=== PATIENT | female | born 1965 | race Caucasian/White ===

== ENCOUNTER 2017-12-27 10:53 | Emergency (ER) | payer OTHER ==
[2017-12-27 11:00] VITALS: BMI 28.3
--- NOTE | 2017-12-27 11:30 | PDOC ---
History of Present Illness - General Chief Complaint: Lightheaded Stated Complaint: LEG PAIN/dizziness Time Seen by Provider: 12/27/17 11:30 History Source: Patient, Spouse - History of Present Illness Initial Comments: 12/27/17 11:44 52 year old female with PMHmigraines, GERD c/o right inguinal pain since yesterday. She denies abdominal pain, nausea, vomiting, diarrhea, blood in stool , dysuria, vaginal bleeding, vaginal discharge, fever, chest pain, shortness of breath, headache. She also complains of dizziness since this morning. Pt states her pain began while she was lying in bed, doing no activity. PCP - Dr. Nay Reynoso Allergies - NKDA Denies etoh use, nicotine use and illicit drug use. LMP - 2 years ago. Past History - Past Medical History Allergies/Adverse Reactions: Allergies Allergy/AdvReac Type Severity Reaction Status Date / Time No Known Allergies Allergy Verified 12/27/17 10:56 Home Medications: Ambulatory Orders Esomeprazole Magnesium [Nexium 24Hr] 20 mg PO DAILY 12/27/17 COPD: No GI Disorders: Yes (gastritis) Other medical history: migraines,vertigo - Suicide/Smoking/Psychosocial Hx Smoking History: Never smoked Have you smoked in the past 12 months: No Information on smoking cessation initiated: No Hx Alcohol Use: No Drug/Substance Use Hx: No Substance Use Type: None Review of Systems - Review of Systems Able to Perform ROS?: Yes Comments:: 12/27/17 11:46 General: denies fever, chills, night sweats, generalized weakness. HEENT: denies sore throat, rhinorrhea, ear pain. Heart: denies chest pain, palpitations, syncope, lower extremity swelling, diaphoresis. Respiratory: denies shortness of breath, cough, sputum production, hematemesis. Abdomen: admits to right inguinal pain. denies abdominal pain, nausea, vomiting , diarrhea, constipation, blood in stool. : denies dysuria, increased urinary frequency, hematuria, urinary incontinence , flank pain. Back: denies back pain, flank pain. Musculoskeletal: denies joint pain, muscle pain, joint swelling. Neurological: admits to dizziness. denies headache, numbness, tingling, weakness. Skin: denies rash, laceration, abrasion. *Physical Exam - Vital Signs Last Vital Signs Temp Pulse Resp BP Pulse Ox 99.4 F 95 H 18 150/95 100 12/27/17 10:58 12/27/17 10:58 12/27/17 10:58 12/27/17 10:58 12/27/17 10:58 - Physical Exam Comments: 12/27/17 11:47 Appearance: comfortable. HEENT: head is normocephalic, atraumatic. EOMI. PERRLA. Neck: supple. Full ROM. Heart: regular rhythm. no murmurs, rubs or gallops. No pericardial friction rub. Lungs: clear to auscultation bilaterally. no crackles, rhonchi or wheezing. no stridor. Abdomen: soft, nontender. normal bowel sounds. no rebound, guarding, masses. CVA tenderness negative bilaterally. Pelvis: right inguinal tenderness to palpation. No erythema or rash. Extremities: Peripheral pulses intact and equal. No lower extremity edema. Neurological: Alert. Oriented x3. CN2-12 intact. 5/5 strength all extremities. Full sensation all extremities and bilateral face. Romberg negative. Finger to nose normal. Gait normal. ED Treatment Course - LABORATORY CBC & Chemistry Diagram: 12/27/17 12:15 12/27/17 12:15 Medical Decision Making - Medical Decision Making 12/27/17 11:56 52 year old female with PMH migraines, GERD presenting to ED c/o right inguinal pain since yesterday and dizziness since this morning. Right inguinal tenderness to palpation. Initial Vital Signs Temp Pulse Resp BP Pulse Ox 99.4 F 95 H 18 150/95 100 12/27/17 10:58 12/27/17 10:58 12/27/17 10:58 12/27/17 10:58 12/27/17 10:58 Pending rectal temperature, labs, CT. 12/27/17 12:30 Rectal temperature - 97.8F. 12/27/17 13:05 Pt reassessed, states she is feeling better. 12/27/17 13:10 CBC normal. CMP normal. Coags normal. UA negative. Pending CT. 12/27/17 14:40 CT A/P negative for intra-abdominal pathology. Incidental 6 mm nodule noted to left lung. Recommends follow up CT. 12/27/17 14:54 I, along side Dr. Underwood, spoke with the patient and her family about the plan of care, to which they agree. Pt will be discharged with follow up instructions and strict return precautions. *DC/Admit/Observation/Transfer Diagnosis at time of Disposition: Inguinal pain - Discharge Dispostion Disposition: HOME Condition at time of disposition: Stable Decision to Admit order: No - Referrals Referrals: Nay Reynoso [Primary Care Provider] - - Patient Instructions Additional Instructions: You were seen today for inguinal pain. Your blood work was normal. Your urine analysis was normal. Your CT of your abdomen and pelvis revealed no abdominal pathology. Incidentally , a 6 mm nodule was discovered on your left lung. It is advised that you follow up with a CT of your chest. Please follow up with your primary care doctor for this. I have included a copy of this report in your discharge paperwork. Take Tylenol over the counter for your pain. Please follow up with your primary care doctor within 5 days, call their office today and make an appointment for this week, bring the paperwork given to you today with you. Return to the Emergency Department for increasing pain, fever, weakness, abdominal pain, vaginal bleeding, chest pain, shortness of breath, or any other new, worsening or concerning symptoms. Fuiste visto hoy por dolor inguinal. Garcia anlisis de joe fue normal. Garcia anlisis de orina fue normal. Garcia Cat-Scan de garcia abdomen y pelvis no revel ninguna patologa abdominal. Por cierto, se descubri un ndulo de 6 mm en garcia pulmn joy. Se recomienda que realice un seguimiento con tyler Cat-Scan de garcia pecho. Por favor, maria ines un seguimiento con garcia mdico de atencin primaria para esto. He incluido tyler copia de severo informe en garcia documentacin de descarga. [place] Tylenol sin receta para garcia dolor. Realice un seguimiento con garcia mdico de atencin primaria dentro de los 5 garcia, llame a garcia oficina hoy y maria ines tyler richar para esta semana, traiga la documentacin que se le entreg hoy con usted. Regrese al Departamento de Emergencia para aumentar el dolor, la fiebre, la debilidad, el dolor abdominal, el sangrado vaginal, el dolor en el pecho, la falta de aliento o cualquier otro empeoramiento nuevo o que afecte los sntomas. - Post Discharge Activity
--- NOTE | 2017-12-27 11:47 | PDOC ---
Attending Attestation - Resident Resident Name: JimenezSusie - ED Attending Attestation I have performed the following: I have examined & evaluated the patient, The case was reviewed & discussed with the resident, I agree w/resident's findings & plan, Exceptions are as noted - HPI HPI: 12/27/17 11:50 C/o Right inguinal pain which began yesterday No radiation No rectal bleeding C/o vertigo which is new - Physicial Exam PE: 12/27/17 15:14 GENERAL: The patient is in no acute distress. LUNGS: Breath sounds equal, clear to auscultation bilaterally. No wheezes, and no crackles. HEART:Regular rate and rhythm, normal S1 and S2 without murmur, rub or gallop. ABDOMEN: Soft, nontender, non distended, right groin tenderness to palpation EXTREMITIES: Normal range of motion, no edema. NEUROLOGICAL: Cranial nerves II through XII grossly intact. Normal speech. No focal neurological deficits. SKIN: Warm, Dry, normal turgor, no rashes or lesions noted. - Medical Decision Making 12/27/17 15:15 Laboratory Tests 12/27/17 12/27/17 12/27/17 12:15 12:15 12:15 WBC 5.0 Hgb 13.4 Hct 37.4 Plt Count 257 INR 0.98 Sodium 142 Potassium 3.8 Chloride 106 Carbon Dioxide 29 BUN 9 Creatinine 0.4 L Random Glucose 102 Urine Blood Urine Nitrite Urine HCG, Qual 12/27/17 12/27/17 12:20 12:20 WBC Hgb Hct Plt Count INR Sodium Potassium Chloride Carbon Dioxide BUN Creatinine Random Glucose Urine Blood Negative Urine Nitrite Negative Urine HCG, Qual Negative CT demonstrates no intraabdominal process 6 mm nodule in the Left lower lobe Will discharge to home Follow up with PMD Return to the ER for any other concerns or complaints clinical impression: right groin pain, initial presentation
[2017-12-27] MEDS ORDERED: ACETAMINOPHEN 500 MG TABLET (FP) PO ONE (11:48)
[2017-12-27] MEDS ORDERED: ACETAMINOPHEN 325 MG TABLET (FP) ONE (11:51)
[2017-12-27 12:30] LABS: BASO % 0.8 % (0-2.0); EOS % 1.3 % (0-4.5); HEMATOCRIT 37.4 % (32.4-45.2); HEMOGLOBIN 13.4 GM/dL (10.7-15.3); MCH 33.2 pg (25.7-33.7); MCHC 35.8 g/dl (32.0-36.0); MEAN CELL VOLUME 92.7 fl (80-96); MEAN PLT VOLUME 8.3 fl (7.5-11.1); NEUT % 51.9 % (42.8-82.8); PLATELET COUNT 257 K/MM3 (134-434); RBC 4.04 M/mm3 (3.60-5.2); RDW 12.8 % (11.6-15.6)
[2017-12-27 12:44] LABS: URINE APPEARANCE CLEAR; URINE BILIRUBIN NEGATIVE (<2.0 mg/dL); URINE COLOR STRAW; URINE GLUCOSE (UA) NEGATIVE (NEGATIVE); URINE KETONE NEGATIVE (NEGATIVE); URINE LEUK ESTERASE NEGATIVE (NEGATIVE); URINE NITRITE NEGATIVE (NEGATIVE); URINE PROTEIN NEGATIVE (NEGATIVE); URINE UROBILINOGEN NEGATIVE mg/dL (0.2-1.0)
[2017-12-27 12:49] LABS: INR 0.98 (0.83-1.09); PROTHROMBIN TIME (PATIENT) 11.1 SEC (9.7-13.0)
[2017-12-27 12:52] LABS: ALBUMIN 3.6 g/dl (3.4-5.0); ANION GAP 7 MMOL/L (8-16); BLOOD UREA NITROGEN 9 mg/dL (7-18); CALCIUM 8.8 mg/dL (8.5-10.1); CHLORIDE 106 mmol/L (98-107); CO2 29 mmol/L (21-32); CREATININE 0.4 mg/dL (0.55-1.02); GLUCOSE,RANDOM 102 mg/dL (74-106); POTASSIUM 3.8 mmol/L (3.5-5.1); SGOT/AST 34 U/L (15-37); SGPT/ALT 82 U/L (12-78); SODIUM 142 mmol/L (136-145)
[2017-12-27 12:54] LABS: ALK PHOS 110 U/L (45-117); BILIRUBIN,TOTAL 0.4 mg/dL (0.2-1.0); TOT PROT 6.8 g/dl (6.4-8.2)
[2017-12-27 15:40] VITALS: BP 130/87; PULSE 68; TEMP 97.7
== END 2017-12-27 15:42 | disposition home or self-care (01) ==
LOC: JER 10:53
DX: R10.31 Right lower quadrant pain (principal); K21.9 Gastro-esophageal reflux disease without esophagitis; G43.909 Migraine, unspecified, not intractable, without status migrainosus; R91.1 Solitary pulmonary nodule
CPT/HCPCS: 36415; 74177-TC; 80053; 81003; 84703; 85025; 85610; 85730; 87086; 99283-25

== ENCOUNTER 2018-05-12 23:51 | Emergency (ER) | payer OTHER ==
--- NOTE | 2018-05-13 00:07 | PDOC ---
History of Present Illness - General Chief Complaint: Pain Stated Complaint: PAIN Time Seen by Provider: 05/13/18 00:07 History Source: Patient Exam Limitations: No Limitations - History of Present Illness Initial Comments: 05/13/18 00:38 52 year old female with PMH gastritis presented to ED for bilateral foot pain x2 days. She stated the pain is located to the soles of her feet, burning, constant, aggravated by walking, alleviated by rest. She denied fever, chills, numbness, weakness, vomiting, or any other symptoms. She stated she only takes Pepcid once a day, not twice a day as she is prescribed. Allergies: NKDA Past History - Past Medical History Allergies/Adverse Reactions: Allergies Allergy/AdvReac Type Severity Reaction Status Date / Time No Known Allergies Allergy Verified 02/07/18 23:57 Home Medications: Ambulatory Orders Famotidine [Pepcid] 20 mg PO BID 5 Days #10 tablet 02/08/18 Meloxicam 7.5 mg PO DAILY #7 tablet 05/13/18 COPD: No GI Disorders: Yes (gastritis) - Suicide/Smoking/Psychosocial Hx Smoking History: Never smoked Have you smoked in the past 12 months: No Hx Alcohol Use: No Drug/Substance Use Hx: No Substance Use Type: None Review of Systems - Review of Systems Able to Perform ROS?: Yes Comments:: 05/13/18 00:39 General: denied fever, chills, night sweats, generalized weakness. HEENT: denied sore throat, rhinorrhea, ear pain. Heart: denied chest pain, palpitations, syncope, lower extremity swelling, diaphoresis. Respiratory: denied shortness of breath, cough, sputum production, hemoptysis. Abdomen: denied abdominal pain, nausea, vomiting, diarrhea, constipation, blood in stool. : denied dysuria, increased urinary frequency, hematuria, urinary incontinence , flank pain. Back: denied back pain. Musculoskeletal: denied joint pain, muscle pain, joint swelling. Neurological: admitted to foot burning. denied headache, dizziness, numbness, tingling, weakness. Skin: denied rash, laceration, abrasion. *Physical Exam - Physical Exam Comments: 05/13/18 00:39 Constitutional: Well-nourished, Well-developed, appearing stated age. HEENT: head is normocephalic, atraumatic. EOMI. PERRLA. Neck: supple. Full ROM. Heart: regular rhythm. no murmurs, rubs or gallops. Lungs: clear to auscultation bilaterally. no crackles, rhonchi or wheezing. no stridor. Abdomen: soft, nontender. normal bowel sounds. no rebound, guarding, masses. Extremities: Peripheral pulses intact. No lower extremity edema. pain with palpation of sole of foot bilaterally. Neurological: Alert. Oriented x3. CN2-12 intact. 5/5 strength all extremities. Full sensation all extremities and bilateral face. No ataxia. Psych: awake, alert, oriented x3. Follows commands. Answers questions appropriately. ED Treatment Course - LABORATORY CBC & Chemistry Diagram: 05/13/18 00:45 05/13/18 00:45 Medical Decision Making - Medical Decision Making 05/13/18 00:40 52 year old female with PMH gastritis presented to ED for bilateral burning of soles of feet x2 days. Suspicion for neuropathy vs plantar fascitis. Initial Vital Signs Temp Pulse Resp BP Pulse Ox 97.6 F 75 18 124/71 99 05/13/18 00:07 05/13/18 00:07 05/13/18 00:07 05/13/18 00:07 05/13/18 00:07 Afebrile. No tachycardia. No tachypnea. No hypotension. No hypoxia on room air. Labs ordered: CBC, CMP, TSH, Mg, B12, ESR Medications ordered: Tramadol, Toradol Imaging ordered: none 05/13/18 01:06 CBC WBC 6.1 K/mm3 (4.0-10.0) 05/13/18 00:45 RBC 3.93 M/mm3 (3.60-5.2) 05/13/18 00:45 Hgb 13.2 GM/dL (10.7-15.3) 05/13/18 00:45 Hct 36.6 % (32.4-45.2) 05/13/18 00:45 MCV 93.2 fl (80-96) 05/13/18 00:45 MCH 33.6 pg (25.7-33.7) 05/13/18 00:45 MCHC 36.0 g/dl (32.0-36.0) 05/13/18 00:45 RDW 12.5 % (11.6-15.6) 05/13/18 00:45 Plt Count 253 K/MM3 (134-434) D 05/13/18 00:45 MPV 8.3 fl (7.5-11.1) 05/13/18 00:45 Absolute Neuts (auto) 2.9 K/mm3 (1.5-8.0) 05/13/18 00:45 Neutrophils % 48.3 % (42.8-82.8) D 05/13/18 00:45 Lymphocytes % 41.6 % (8-40) H D 05/13/18 00:45 Monocytes % 7.6 % (3.8-10.2) 05/13/18 00:45 Eosinophils % 1.8 % (0-4.5) D 05/13/18 00:45 Basophils % 0.7 % (0-2.0) 05/13/18 00:45 Nucleated RBC % 0 % (0-0) 05/13/18 00:45 No leukocytosis. No anemia. ESR normal. 05/13/18 01:58 Pt reported improvement in pain, walked to the bathroom and back. 05/13/18 02:05 CMP Sodium 139 mmol/L (136-145) 05/13/18 00:45 Potassium 3.6 mmol/L (3.5-5.1) 05/13/18 00:45 Chloride 104 mmol/L (98-107) 05/13/18 00:45 Carbon Dioxide 31 mmol/L (21-32) 05/13/18 00:45 Anion Gap 5 MMOL/L (8-16) L 05/13/18 00:45 BUN 13 mg/dL (7-18) 05/13/18 00:45 Creatinine 0.6 mg/dL (0.55-1.3) 05/13/18 00:45 Creat Clearance w eGFR > 60 (>60) 05/13/18 00:45 Random Glucose 138 mg/dL (74-106) H 05/13/18 00:45 Calcium 9.0 mg/dL (8.5-10.1) 05/13/18 00:45 Magnesium 2.1 mg/dL (1.8-2.4) 05/13/18 00:45 Total Bilirubin 0.3 mg/dL (0.2-1) 05/13/18 00:45 AST 36 U/L (15-37) 05/13/18 00:45 ALT 100 U/L (13-61) H 05/13/18 00:45 Alkaline Phosphatase 110 U/L (45-117) 05/13/18 00:45 Total Protein 7.0 g/dl (6.4-8.2) 05/13/18 00:45 Albumin 3.9 g/dl (3.4-5.0) 05/13/18 00:45 Vitamin B12 437 pg/ml (193-986) 05/13/18 00:45 TSH 5.26 uIU/ml (0.358-3.74) H 05/13/18 00:45 No electrolyte abnormalities. No BRIE. Mild ALT elevation. Hypothyroidism. 05/13/18 02:08 Pt informed of results and given copies of lab work. Pt informed to follow up with PCP, Endocrine and Ortho. Pt given referrals. Pt discharged. *DC/Admit/Observation/Transfer Diagnosis at time of Disposition: Foot pain - Discharge Dispostion Disposition: HOME Condition at time of disposition: Stable - Prescriptions Prescriptions: Meloxicam 7.5 mg PO DAILY #7 tablet - Referrals Referrals: Nay Reynoso [Primary Care Provider] - Herbie Watt MD [Staff Physician] - Stanislaw Talbot DO [Staff Physician] - Aamir Chatman MD [Staff Physician] - Carter Gates MD [Staff Physician] - - Patient Instructions Additional Instructions: Your thyroid hormone is low. One of your liver tests was elevated. I have given you copies of the lab results. Take prescribed medications as indicated on labels, with food. Take your pepcid you are prescribed twice a day. Follow up with your primary care doctor in 1-3 days. Follow up with an orthopedic doctor in 1-3 days. Follow up with an crimping machine operator for metal in 1-3 days. I have provided you with multiple referrals. Take all of the paperwork given to you today to your appointment. Return to the Emergency Department for numbness, weakness, chest pain, shortness of breath or any other new, worsening or concerning symptoms. - Post Discharge Activity Forms/Work/School Notes: Back to Work
[2018-05-13 00:16] VITALS: TEMP 97.6; BMI 33.0
[2018-05-13] MEDS ORDERED: traMADol HCL 50 MG TABLET PO ONE (00:37)
[2018-05-13] MEDS ORDERED: traMADol HCL 50 MG TABLET ONE (00:48)
[2018-05-13] MEDS ORDERED: KETOROLAC TROMETHAMINE 30 MG/1 ML VIAL IVPUSH ONE (00:52)
[2018-05-13 00:54] LABS: BASO % 0.7 % (0-2.0); EOS % 1.8 % (0-4.5); HEMATOCRIT 36.6 % (32.4-45.2); HEMOGLOBIN 13.2 GM/dL (10.7-15.3); LYMPH % 41.6 % (8-40); MCH 33.6 pg (25.7-33.7); MEAN CELL VOLUME 93.2 fl (80-96); MEAN PLT VOLUME 8.3 fl (7.5-11.1); MONO % 7.6 % (3.8-10.2); NEUT % 48.3 % (42.8-82.8); PLATELET COUNT 253 K/MM3 (134-434); RBC 3.93 M/mm3 (3.60-5.2); RDW 12.5 % (11.6-15.6); WHITE BLOOD COUNT 6.1 K/mm3 (4.0-10.0)
[2018-05-13] MEDS ORDERED: KETOROLAC TROMETHAMINE 30 MG/1 ML VIAL ONE (00:54)
--- NOTE | 2018-05-13 01:21 | PDOC ---
Attending Attestation - Resident Resident Name: Susie Gaona - ED Attending Attestation I have performed the following: I have examined & evaluated the patient, The case was reviewed & discussed with the resident, I agree w/resident's findings & plan - HPI HPI: 05/13/18 01:18 52-year-old female presents with bilateral foot pain, right worse than left, over the last few days. No trauma or unusual exertion or strain, had similar pain in the right foot about one year ago which was relieved by an anti- inflammatory injection performed by an orthopedic, now with same pain. Has history of mild arthritis that was recently diagnosed, denies any fevers or chills. - Physicial Exam PE: 05/13/18 01:19 Afebrile, vital signs normal Normal exam except for bilateral feet: Small area of soft tissue swelling in the medial aspect of the right foot just distal to the talus, tender to palpation over this area and over the heel and plantar area of the foot bilaterally. No dorsal foot swelling, full range of motion of toes, 2+ distal pulses with sensation intact. No calf tenderness. - Medical Decision Making 05/13/18 01:20 52-year-old female with presentation is most consistent with plantar fasciitis, right worse than left. Neurovascularly intact, no unusual trauma or strain. Labs sent Trial of Toradol and tramadol No indication for emergent imaging Orthopedics referral 05/13/18 02:13 significant improvement, ambulated to restroom on her own without difficulty. labs wnl, tsh slightly elevated. agrees with d/c plan, rx nsaid (will take bid pepcid), ortho and endocrine referral, understands return criteria.
[2018-05-13 02:03] LABS: ALBUMIN 3.9 g/dl (3.4-5.0); ALK PHOS 110 U/L (45-117); ANION GAP 5 MMOL/L (8-16); BILIRUBIN,TOTAL 0.3 mg/dL (0.2-1); BLOOD UREA NITROGEN 13 mg/dL (7-18); CHLORIDE 104 mmol/L (98-107); CO2 31 mmol/L (21-32); CREATININE 0.6 mg/dL (0.55-1.3); GLUCOSE,RANDOM 138 mg/dL (74-106); MAGNESIUM 2.1 mg/dL (1.8-2.4); POTASSIUM 3.6 mmol/L (3.5-5.1); SGOT/AST 36 U/L (15-37); SGPT/ALT 100 U/L (13-61); SODIUM 139 mmol/L (136-145)
[2018-05-13 02:19] LABS: ERYTHROCYTE SEDIMENTATION RATE 23 mm/hr (0-30)
[2018-05-13 02:32] VITALS: BP 122/84; PULSE 68
== END 2018-05-13 02:30 | disposition home or self-care (01) ==
LOC: JER 23:51
PROC: 3E0333Z Introduction of Anti-inflammatory into Peripheral Vein, Percutaneous Approach (ICD-10-PCS; principal; 2018-05-12)
DX: M79.672 Pain in left foot (principal); M79.671 Pain in right foot
CPT/HCPCS: 36415; 80053; 82607; 83735; 84443; 85025; 85651; 99281-25

== ENCOUNTER 2021-01-10 00:44 | Emergency (ER) | payer OTHER ==
[2021-01-10 00:59] VITALS: BP 132/83; PULSE 82; TEMP 98.3; BMI 30.9
[2021-01-10] MEDS ORDERED: MAG HYDROX/AL HYDROX/SIMETH 30 ML UNIT-DOSE CUP PO ONE (01:16)
[2021-01-10] MEDS ORDERED: FAMOTIDINE 20 MG/50 ML IVPB 20 MG/50 ML MG IVPB ONE ×2 (01:16→01:31)
[2021-01-10] MEDS ORDERED: ONDANSETRON 4 MG/2 ML VIAL IVPUSH ONE (01:16)
[2021-01-10] MEDS ORDERED: SODIUM CHLORIDE 1,000 ML IV STA (01:17)
[2021-01-10] MEDS ORDERED: ONDANSETRON 4 MG/2 ML VIAL ONE (01:31)
[2021-01-10] MEDS ORDERED: MAG HYDROX/AL HYDROX/SIMETH 30 ML UNIT-DOSE CUP ONE (01:31)
[2021-01-10 01:41] LABS: EPI CELLS 22 /uL (0-25.1); HYALINE CASTS 1 /uL (0-3.1); PH,URINE 5.5 (5.0-8.0); URINE APPEARANCE CLEAR; URINE BACTERIA 227 /uL (0-1359); URINE BILIRUBIN NEGATIVE (NEGATIVE); URINE COLOR YELLOW; URINE GLUCOSE (UA) NEGATIVE (NEGATIVE); URINE KETONE NEGATIVE (NEGATIVE); URINE LEUK ESTERASE NEGATIVE (NEGATIVE); URINE NITRITE NEGATIVE (NEGATIVE); URINE PROTEIN NEGATIVE (NEGATIVE); URINE RBC 34 /uL (0-23.9); URINE UROBILINOGEN 0.2 mg/dL (0.2-1.0); URINE WBC 7 /uL (0-25.8)
[2021-01-10 01:44] LABS: BASO % 0.7 % (0-2.0); EOS % 1.4 % (0-4.5); HEMATOCRIT 41.3 % (32.4-45.2); HEMOGLOBIN 14.7 GM/dL (10.7-15.3); LYMPH % 24.8 % (8-40); MCH 32.5 pg (25.7-33.7); MCHC 35.6 g/dl (32.0-36.0); MEAN CELL VOLUME 91.3 fl (80-96); MEAN PLT VOLUME 7.8 fl (7.5-11.1); MONO % 11.6 % (3.8-10.2); NEUT % 61.5 % (42.8-82.8); PLATELET COUNT 234 10^3/uL (134-434); RBC 4.52 M/mm3 (3.60-5.2); RDW 12.7 % (11.6-15.6); WHITE BLOOD COUNT 5.3 K/mm3 (4.0-10.0)
[2021-01-10 02:07] LABS: CALCIUM 8.8 mg/dL (8.5-10.1)
[2021-01-10 02:08] LABS: ALBUMIN 4.1 g/dl (3.4-5.0); BLOOD UREA NITROGEN 14.7 mg/dL (7-18)
[2021-01-10 02:11] LABS: CREATININE 0.7 mg/dL (0.55-1.3)
[2021-01-10 02:12] LABS: BILIRUBIN,TOTAL 0.3 mg/dL (0.2-1); TOT PROT 8.3 g/dl (6.4-8.2)
== END 2021-01-10 03:28 | disposition home or self-care (01) ==
LOC: JER 00:44
PROC: 3E033NZ Introduction of Analgesics, Hypnotics, Sedatives into Peripheral Vein, Percutaneous Approach (ICD-10-PCS; principal; 2021-01-10)
PROC: 3E033GC Introduction of Other Therapeutic Substance into Peripheral Vein, Percutaneous Approach (ICD-10-PCS; 2021-01-10)
PROC: 3E0337Z Introduction of Electrolytic and Water Balance Substance into Peripheral Vein, Percutaneous Approach (ICD-10-PCS; 2021-01-10)
DX: R10.13 Epigastric pain (principal)
CPT/HCPCS: 36415; 71045-TC-FY; 80053; 81003; 82550; 83690; 84484; 85025; 87086; 93005; 93010; 99284-25

== ENCOUNTER 2021-06-17 20:31 | Emergency (ER) | payer OTHER ==
[2021-06-17 20:37] VITALS: BP 145/69; PULSE 85; TEMP 98.1; BMI 31.1
[2021-06-17] MEDS ORDERED: LIDOCAINE 5% TOPICAL PATCH TP ONE (21:48)
[2021-06-17] MEDS ORDERED: KETOROLAC TROMETHAMINE 30 MG/1 ML VIAL IM ONE (21:48)
[2021-06-17] MEDS ORDERED: KETOROLAC TROMETHAMINE 30 MG/1 ML VIAL ONE (21:50)
[2021-06-17] MEDS ORDERED: LIDOCAINE 5% TOPICAL PATCH ONE (21:50)
[2021-06-17] MEDS ORDERED: LIDOCAINE PATCH REMOVAL MC SCH (22:00)
== END 2021-06-17 22:41 | disposition home or self-care (01) ==
LOC: JERFT 20:31
PROC: 3E023GC Introduction of Other Therapeutic Substance into Muscle, Percutaneous Approach (ICD-10-PCS; principal; 2021-06-17)
DX: R51.9 Headache, unspecified (principal); V89.2XXA Person injured in unspecified motor-vehicle accident, traffic, initial encounter
CPT/HCPCS: 72100-TC-FY; 73030-TC-RT-FY; 99284-25

== ENCOUNTER 2022-03-11 04:35 | Day surgery (SDC) | payer OTHER ==
[2022-03-06 14:45] VITALS: BMI 31.1
[2022-03-11 08:32] VITALS: RESP 16
[2022-03-11] MEDS ORDERED: MIDAZOLAM HCL 2 MG/2 ML SINGLE DOSE VIAL ONE (09:48)
[2022-03-11] MEDS ORDERED: SODIUM CHLORIDE 500 ML IV SCH (10:00)
[2022-03-11] MEDS ORDERED: MIDAZOLAM HCL 2 MG/2 ML SINGLE DOSE VIAL IVPUSH ONE ×2 (10:25→10:32)
[2022-03-11] MEDS ORDERED: ACETAMINOPHEN 1000 MG/100 ML BAG IVPB ONE ×2 (11:15→11:25)
[2022-03-11] MEDS ORDERED: ACETAMINOPHEN INJECTION 100 ML IVPB ONE (11:19)
[2022-03-11 13:46] VITALS: BP 132/92; PULSE 90; TEMP 98.9
== END 2022-03-11 13:35 | disposition home or self-care (01) ==
LOC: JRADIR 04:35
PROVIDERS: ATTEND Internal Medicine Gastroenterology
PROC: 0FB03ZX Excision of Liver, Percutaneous Approach, Diagnostic (ICD-10-PCS; principal; 2022-03-11)
DX: K76.0 Fatty (change of) liver, not elsewhere classified (principal)
CPT/HCPCS: 47000; 76942-TC; 81025; 87899; 88307-TC; 88313-TC